=== PATIENT | female | born 2000 | race Caucasian/White ===

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

== ENCOUNTER 2020-03-21 10:39 | Emergency (ER) | payer OTHER ==
[~2020-03-21] VITALS: Ht 165.1 cm; Wt 56.7 kg
--- NOTE | 2020-03-21 10:49 | NUR ---
PT AMBULATED TO BATHROOM, STEADY GAIT.
[2020-03-21 10:50] VITALS: BP 122/75
--- NOTE | 2020-03-21 11:00 | NUR ---
20 Y/F PRESENTS TO ED FOR ON AND OFF CHEST PALPIATIONS ONSET WHILE DANCING YESTERDAY. "IT FEELS LIKE MY HEART IS DROPPING". PT REPORTS IT IS EXACCERBATED BY MOVEMENT. DENIES PAIN, BUT REPORTS SLIGHT SOB. PT DENIES N/V/D/ FEVER. PT DENIES ANY USE OF ENERGY DRINKS OR WORKOUT SUPPLEMENTS. PT DENIES COUGH, LUNGS CLEAR, A&O X 4. PT ALSO REPORTS R THIGH ABRASION X 2 DAYS WHILE HIKING, SKIN INTACT, C ERYTHEMA, NO PUS, FEVER OR SIGNS OF INFECTION PMH- ASTHMA RX- CONTROL PATCH
[2020-03-21 11:38] VITALS: BP 122/75
--- NOTE | 2020-03-21 11:38 | NUR ---
Patient discharged with v/s stable. Written and verbal after care instructions given and explained. Patient alert, oriented and verbalized understanding of instructions. Ambulatory with steady gait. All questions addressed prior to discharge. ID band removed. Patient advised to follow up with PMD. Rx of VISTARIL given. Patient educated on indication of medication including possible reaction and side effects. Opportunity to ask questions provided and answered.
== END 2020-03-21 11:38 | disposition home or self-care (01) ==
LOC: MED 10:39
DX: F41.9 Anxiety disorder, unspecified (principal); J45.909 Unspecified asthma, uncomplicated; Z88.6 Allergy status to analgesic agent; Z88.8 Allergy status to other drugs, medicaments and biological substances; Z79.899 Other long term (current) drug therapy
CPT/HCPCS: 81002; 81025; 93005; 99283

== ENCOUNTER 2020-04-23 01:04 | Emergency (ER) | payer OTHER ==
[~2020-04-23] VITALS: Ht 165.1 cm; Wt 55.8 kg
[2020-04-23 01:10] VITALS: BP 137/82
--- NOTE | 2020-04-23 01:14 | NUR ---
AMBULATED TO BED O6 WITH STEADY GAIT.
[2020-04-23] MEDS: PHENAZOPYRIDINE 100 MG TAB PO ONE (02:30)
[2020-04-23] MEDS: cephALEXin 500 MG CAP PO ONE (02:30)
[2020-04-23] MEDS ORDERED: DOXYCYCLINE 100 MG CAP PO SCH (03:20)
--- NOTE | 2020-04-23 03:28 | NUR ---
Dr Shelton preformed pelvic exam with this nurse. Wet mount sent to lab.
[2020-04-23] MEDS ORDERED: cefTRIAXone 250 MG VIAL ONE (03:32)
[2020-04-23] MEDS ORDERED: LIDOCAINE MPF 1% 5 ML ONE (03:32)
[2020-04-23] MEDS: cefTRIAXone 250 MG in LIDOCAINE MPF 1% 0.9 ML IM ONE (03:38)
[2020-04-23] MEDS: FLUCONAZOLE 100 MG TAB PO ONE (03:47)
[2020-04-23 04:32] VITALS: BP 128/62
[2020-04-25 06:18] LABS: CHLAMYDIA TRACHOMATIS AMP DNA Negative (Negative)
== END 2020-04-23 04:32 | disposition home or self-care (01) ==
LOC: MED 01:04
DX: N39.0 Urinary tract infection, site not specified (principal); J45.909 Unspecified asthma, uncomplicated; Z88.6 Allergy status to analgesic agent; Z88.8 Allergy status to other drugs, medicaments and biological substances; Z79.899 Other long term (current) drug therapy
CPT/HCPCS: 36415; 81002; 81025; 87210; 87491; 96372; 99284; J0696; J2001; 99283

== ENCOUNTER 2020-04-28 13:14 | Emergency (ER) | payer OTHER ==
[~2020-04-28] VITALS: Ht 165.1 cm; Wt 55.8 kg
[2020-04-28 13:23] VITALS: BP 113/62
[2020-04-28] MEDS ORDERED: ACETAMINOPHEN EXTRA STRENGTH 500 MG TAB PO ONE (14:00)
[2020-04-28] MEDS ORDERED: ONDANSETRON 4 MG ODT PO ONE (14:00)
[2020-04-28 14:22] VITALS: BP 113/62
== END 2020-04-28 14:22 | disposition home or self-care (01) ==
LOC: MED 13:14
DX: N39.0 Urinary tract infection, site not specified (principal); R11.0 Nausea; J45.909 Unspecified asthma, uncomplicated; Z79.899 Other long term (current) drug therapy; Z88.6 Allergy status to analgesic agent; Z88.5 Allergy status to narcotic agent; Z88.8 Allergy status to other drugs, medicaments and biological substances
CPT/HCPCS: 81002; 81025; 99283; Q0162

== ENCOUNTER 2020-09-13 23:24 | Emergency (ER) | payer OTHER ==
[~2020-09-13] VITALS: Ht 165.1 cm; Wt 58.5 kg
[2020-09-13 23:25] VITALS: BP 122/74
--- NOTE | 2020-09-13 23:28 | NUR ---
TO LOBBY A/W BED AMBULATORY
--- NOTE | 2020-09-14 00:35 | NUR ---
PATIENT CALLED FOR BED , NO RESPONSE PATIENT LEFT WITHOUT BEING SEEN BY DR. CARLISLE. NO FURTHER CARE PROVIDED FOR PATIENT.
--- NOTE | 2020-09-14 00:45 | NUR ---
CALLED FOR THE SECOND TIME , NO RESPONSE
--- NOTE | 2020-09-14 00:50 | NUR ---
CALLED FOR THE THIRD TIME, NO RESPONSE
== END 2020-09-14 00:35 | disposition left against medical advice (07) ==
LOC: MED 23:24
DX: M54.5 Low back pain (principal); Z53.21 Procedure and treatment not carried out due to patient leaving prior to being seen by health care provider

== ENCOUNTER 2020-12-17 01:23 | Emergency (ER) | payer OTHER ==
[~2020-12-17] VITALS: Ht 165.1 cm; Wt 59.0 kg
[2020-12-17 01:27] VITALS: BP 108/57
[2020-12-17 03:15] VITALS: BP 108/57
== END 2020-12-17 03:12 | disposition home or self-care (01) ==
LOC: MED 01:23
DX: R07.9 Chest pain, unspecified (principal); M79.602 Pain in left arm; J45.909 Unspecified asthma, uncomplicated; Z23 Encounter for immunization; Z79.899 Other long term (current) drug therapy; Z88.8 Allergy status to other drugs, medicaments and biological substances; Z88.6 Allergy status to analgesic agent; Z88.5 Allergy status to narcotic agent
CPT/HCPCS: 71045; 81025; 93005; 99283

== ENCOUNTER 2021-10-06 13:44 | Emergency (ER) | payer OTHER ==
[~2021-10-06] VITALS: Ht 165.1 cm; Wt 59.0 kg
[~2021-10-06 13:44] MED LIST changes: +ACET-10509 PO; -ACET-6134 PO
[2021-10-06 14:20] VITALS: BP 125/50
[2021-10-06] MEDS ORDERED: PRED20TA5 PO (14:59)
[2021-10-06] MEDS ORDERED: PROM118S5 PO (14:59)
--- NOTE | 2021-10-06 15:22 | NUR ---
COVID PCR & COVID RAPID SWABS DONE.
--- NOTE | 2021-10-06 15:30 | NUR ---
NO NURSING CARE RENDERED-Patient discharged with v/s stable. Written and verbal after care instructions given and explained. Patient alert, oriented and verbalized understanding of instructions. Ambulatory with steady gait. All questions addressed prior to discharge. ID band removed. Patient advised to follow up with PMD. Rx of DELTASONE, PROMETHAZINE-DM given. Patient educated on indication of medication including possible reaction and side effects. Opportunity to ask questions provided and answered.
== END 2021-10-06 15:30 | disposition home or self-care (01) ==
LOC: MED 13:44
DX: R06.02 Shortness of breath (principal); Z20.822 Contact with and (suspected) exposure to COVID-19; J45.909 Unspecified asthma, uncomplicated; Z79.899 Other long term (current) drug therapy; Z88.5 Allergy status to narcotic agent; Z88.8 Allergy status to other drugs, medicaments and biological substances; Z88.6 Allergy status to analgesic agent
CPT/HCPCS: 87426; 99283; U0003

== ENCOUNTER 2022-01-21 19:26 | Emergency (ER) | payer OTHER ==
[~2022-01-21] VITALS: Ht 165.1 cm; Wt 59.0 kg
[~2022-01-21 19:26] MED LIST changes: +PRED20TA5 PO; +PROM118S5 PO
[2022-01-21 19:32] VITALS: BP 125/84
--- NOTE | 2022-01-21 19:42 | NUR ---
PT TAKEN TO ER BED 05
--- NOTE | 2022-01-21 19:50 | NUR ---
IV ESTABLISHED 20G LEFT AC
[2022-01-21] MEDS ORDERED: KETOROLAC 30 MG/ML VIAL IVP ONE (19:55)
[2022-01-21] MEDS ORDERED: NACL 0.9% 1,000 ML IV SCH (19:55)
--- NOTE | 2022-01-21 20:08 | NUR ---
PATIENT TAKEN TO CT VIA W/C. CONSENT SIGNED AND FILED IN CHART. STATED NO NEED TO WAIT FOR LABS RIGHT NOW
[2022-01-21 20:12] LABS: BASOPHILS % (AUTO) 0.7 % (0.0-2.0); EOSINOPHILS # (AUTO) 0.1 K/uL (0-0.4); EOSINOPHILS % (AUTO) 1.8 % (0.0-4.0); HEMATOCRIT 34.6 % (36-48); HEMOGLOBIN 11.6 g/dL (12.0-16.0); LYMPHOCYTES # (AUTO) 3.4 K/uL (2.5-16.5); LYMPHOCYTES % (AUTO) 49.1 % (20.5-51.1); MEAN CORPUSCULAR HEMOGLOBIN 29 pg (27-31); MEAN CORPUSCULAR HGB CONC 33 g/dL (33-37); MEAN CORPUSCULAR VOLUME 85.3 fL (80-94); MONOCYTES # (AUTO) 0.5 K/uL (0.8-1.0); MONOCYTES % (AUTO) 7.7 % (1.7-9.3); NEUTROPHILS # (AUTO) 2.8 K/uL (1.8-7.7); NEUTROPHILS % (AUTO) 40.7 % (42.2-75.2); PLATELET COUNT (AUTO) 313 K/uL (140-450); RED BLOOD CELL COUNT(AUTO) 4.06 MIL/uL (4.20-5.40); RED CELL DISTRIBUTION WIDTH 13.6 % (11.6-13.7); WHITE BLOOD COUNT (AUTO) 6.9 K/uL (4.8-10.8)
--- NOTE | 2022-01-21 20:15 | NUR ---
PATIENT RETURNED FROM CT VIA CT
[2022-01-21 20:26] LABS: APPEARANCE,URINE CLEAR (CLEAR); BILIRUBIN,URINE NEGATIVE (NEGATIVE); BLOOD, URINE NEGATIVE (NEGATIVE); LEUKOCYTE ESTERASE ,URINE NEGATIVE (NEGATIVE); NITRITE, URINE NEGATIVE (NEGATIVE); UGLUCOSE NEGATIVE (NEGATIVE)
[2022-01-21 20:27] LABS: COLOR,URINE STRAW (YELLOW)
[2022-01-21 20:29] LABS: ANION GAP 12.3 (8-16); CARBON DIOXIDE 27.4 mmol/L (21-32); CREATININE 0.6 mg/dL (0.6-1.3); POTASSIUM 3.7 mmol/L (3.5-5.1); TOTAL BILIRUBIN 0.3 mg/dL (0.0-1.0)
--- NOTE | 2022-01-21 20:34 | NUR ---
21/F BIB SELF, AMBULATORY, AAO X4. C/O RLQ ABD PAIN. PAIN IS 9/10 AND RAD TO THE RIGHT PELVIC AND LEG, EXACERBATED WHEN WALKING. PATIENT HAS N/V/D X1 EPISODE. DENIES FEVER, SOB, CP AT THIS TIME. PATIETN STATED THAT SHE SAW HER OB YESTERDAY, OB STATED THAT THE PROBLEM OF THE PAIN WAS NOT FROM HER OVARIAN CYST. PMHX: ASTHMA, OVARIAN CYST Sx: Tonsillectomy
--- NOTE | 2022-01-21 21:08 | NUR ---
MD FERNANDEZ AT BEDSIDE
--- NOTE | 2022-01-21 21:10 | NUR ---
PATIENT STATED THAT PAIN HAD DECREASED 2/10 AT THIS TIME. BED LOW AND LOCKED. ALL NEEDS MET
[2022-01-21] MEDS ORDERED: IBUP-2213 PO (21:46)
[2022-01-21] MEDS ORDERED: ACET-8386 PO (21:46)
[2022-01-21 22:00] VITALS: BP 121/72
--- NOTE | 2022-01-21 22:00 | NUR ---
IV removed, catheter intact and site benign. Applied folded 4x4 gauze and tape to stop bleeding.
--- NOTE | 2022-01-21 22:00 | NUR ---
Patient discharged with v/s stable. Written and verbal after care instructions given on Abd pain/ovarian cyst and explained. Patient alert, oriented and verbalized understanding of instructions. Ambulatory with steady gait. All questions addressed prior to discharge. ID band removed. Patient advised to follow up with PMD. Rx of Ibuprofen, and Hydrocodone/Acetaminophen given.
--- NOTE | 2022-01-21 22:08 | NUR ---
The patient's care was reviewed and supervised by Georgina Weinberg RN.
== END 2022-01-21 22:00 | disposition home or self-care (01) ==
LOC: MED 19:26
DX: N83.201 Unspecified ovarian cyst, right side (principal); J45.909 Unspecified asthma, uncomplicated; Z88.6 Allergy status to analgesic agent; Z88.5 Allergy status to narcotic agent; Z88.8 Allergy status to other drugs, medicaments and biological substances; Z79.899 Other long term (current) drug therapy; Z90.49 Acquired absence of other specified parts of digestive tract
CPT/HCPCS: 36415; 74177; 80053; 81003; 81025; 83690; 85025; 96361; 96374; 99285; J1885; J7030; Q9967

== ENCOUNTER 2022-07-22 14:43 | Emergency (ER) | payer OTHER ==
[~2022-07-22] VITALS: Ht 157.5 cm; Wt 56.7 kg
[~2022-07-22 14:43] MED LIST changes: +ACET-8386 PO; +IBUP-2213 PO
[2022-07-22 14:46] VITALS: BP 126/74
--- NOTE | 2022-07-22 15:01 | NUR ---
PT AMB TO BED
--- NOTE | 2022-07-22 15:05 | NUR ---
22YO FEMALE PT C/O DIZZINESS AND NAUSEA X3DAYS. STATES GOING TO PCP , DC WITH ANTIBIOTICS DUE TO SINUSITIS. STATES BEING COMPLIANT W/O RELIEF. NOTES "PRESSURED "PAIN BEHIND EYES AND IN NOSE W/ RELIEF AFTER TAKING ADVIL. DENIES V/D, CHEST PAIN , SOB , FEVER OR CHILLS. PT AAOX4, NO VISIBLE DISTRESS. RESPIRATIONS EVEN AND UNLABORED. AMBULATORY W/ STEADY GAIT HX:ASTHMA ALLERGIES : ACETAMINOPHEN, ASPIRIN, DIAZEPAM AND TRAMADOL
--- NOTE | 2022-07-22 15:35 | NUR ---
FROILAN CONNELL AT BEDSIDE FOR EVALUATION
[2022-07-22] MEDS ORDERED: [UNRECOGNIZED DRUG - CODE] NS (15:41)
[2022-07-22] MEDS ORDERED: [UNRECOGNIZED DRUG - CODE] PO (15:41)
--- NOTE | 2022-07-22 15:52 | NUR ---
Patient discharged with v/s stable. Written and verbal after care instructions FOR SINUSITIS AND VERTIGO given and explained. Patient alert, oriented and verbalized understanding of instructions. Ambulatory with steady gait. All questions addressed prior to discharge. ID band removed. Patient advised to follow up with PMD. Rx of OXYMETAZOLINE HCL AND PHENYLEPHRINE HCL given. Opportunity to ask questions provided and answered.
--- NOTE | 2022-07-22 16:02 | NUR ---
The patient's care was reviewed and supervised by [facility], RN.
== END 2022-07-22 15:52 | disposition home or self-care (01) ==
LOC: MED 14:43
DX: R09.82 Postnasal drip (principal); R42 Dizziness and giddiness; J32.9 Chronic sinusitis, unspecified; J45.909 Unspecified asthma, uncomplicated; Z88.5 Allergy status to narcotic agent; Z79.82 Long term (current) use of aspirin; Z88.8 Allergy status to other drugs, medicaments and biological substances
CPT/HCPCS: 99282

== ENCOUNTER 2022-12-23 07:28 | Emergency (ER) | payer OTHER ==
[~2022-12-23] VITALS: Ht 165.1 cm; Wt 71.7 kg
[~2022-12-23 07:28] MED LIST changes: -ACET-8386 PO; +ACET-8905 PO; +[UNRECOGNIZED DRUG - CODE] NS; +[UNRECOGNIZED DRUG - CODE] PO
[2022-12-23 07:36] VITALS: BP 116/69
--- NOTE | 2022-12-23 07:41 | NUR ---
PT AMBULATED TO ER BED 4
[2022-12-23] MEDS ORDERED: DEXAMETHASONE 4 MG/ML VIAL PO ONE (08:00)
[2022-12-23] MEDS ORDERED: FLONAS NS (08:04)
[2022-12-23] MEDS ORDERED: BENZ200C4 PO (08:04)
--- NOTE | 2022-12-23 08:13 | NUR ---
Flu and covid swabs handed to lab.
[2022-12-23 09:07] VITALS: BP 116/69
== END 2022-12-23 09:07 | disposition home or self-care (01) ==
LOC: MED 07:28
DX: B34.9 Viral infection, unspecified (principal); J06.9 Acute upper respiratory infection, unspecified; Z20.822 Contact with and (suspected) exposure to COVID-19; J45.909 Unspecified asthma, uncomplicated; Z79.899 Other long term (current) drug therapy; Z79.1 Long term (current) use of non-steroidal anti-inflammatories (NSAID); Z79.891 Long term (current) use of opiate analgesic; Z88.5 Allergy status to narcotic agent
CPT/HCPCS: 71045; 81025; 87426; 87804; 93005; 99285; J1100; Q0092

== ENCOUNTER 2023-03-23 19:17 | Emergency (ER) | payer OTHER ==
[~2023-03-23] VITALS: Ht 165.1 cm; Wt 66.7 kg
[~2023-03-23 19:17] MED LIST changes: +BENZ200C4 PO; +FLONAS NS
[2023-03-23 19:20] VITALS: BP 123/80; PULSE 68; RESP 17; TEMP 97.7; O2SAT 100
--- NOTE | 2023-03-23 19:23 | NUR ---
to lobby a/w bed ambulatory
--- NOTE | 2023-03-23 19:40 | NUR ---
seen and examined by HOMERO
[2023-03-23] MEDS ORDERED: IMI50 PO (19:52)
[2023-03-23] MEDS ORDERED: ACET-10509 PO (19:52)
[2023-03-23] MEDS ORDERED: IBUP-2213 PO (19:52)
[2023-03-23] MEDS ORDERED: KETOROLAC 30 MG/ML VIAL IM ONE (19:55)
[2023-03-23 20:39] VITALS: BP 123/80; PULSE 68; RESP 17; TEMP 97.7; O2SAT 100
--- NOTE | 2023-03-23 20:39 | NUR ---
Patient discharged with v/s stable. Written and verbal after care instructions given and explained. Patient alert, oriented and verbalized understanding of instructions. Ambulatory with steady gait. All questions addressed prior to discharge. ID band removed. Patient advised to follow up with PMD. Rx of TYLENOL, IBUPROFEN , IMITREX given. Patient educated on indication of medication including possible reaction and side effects. Opportunity to ask questions provided and answered.
--- NOTE | 2023-03-23 20:39 | NUR ---
PT'S PAIN CONTINUES AT 8/10, STATES SHE IS OK TO BE DISCHARGED. STATES SHE CAN TAKE HER PRESCIPTION MEDICATION IF NEEDED.
== END 2023-03-23 20:39 | disposition home or self-care (01) ==
LOC: MED 19:17
DX: G43.909 Migraine, unspecified, not intractable, without status migrainosus (principal); J45.909 Unspecified asthma, uncomplicated; Z79.899 Other long term (current) drug therapy
CPT/HCPCS: 81025; 96372; 99283; J1885

== ENCOUNTER 2023-06-05 19:13 | Emergency (ER) | payer OTHER ==
[~2023-06-05] VITALS: Ht 165.1 cm; Wt 73.0 kg
[~2023-06-05 19:13] MED LIST changes: +IMI50 PO
[2023-06-05 19:28] VITALS: BP 122/76; PULSE 66; RESP 14; TEMP 97.7; O2SAT 99
[2023-06-05] MEDS ORDERED: IBUPROFEN 400 MG TAB PO ONE (19:45)
[2023-06-05] MEDS ORDERED: ACETAMINOPHEN 325 MG TAB PO ONE (19:45)
[2023-06-05 20:30] VITALS: BP 122/76; PULSE 66; RESP 14; TEMP 97.7; O2SAT 99
== END 2023-06-05 20:35 | disposition home or self-care (01) ==
LOC: MED 19:13
DX: S09.90XA Unspecified injury of head, initial encounter (principal); J45.909 Unspecified asthma, uncomplicated; W22.8XXA Striking against or struck by other objects, initial encounter; Y93.89 Activity, other specified; Y92.89 Other specified places as the place of occurrence of the external cause; Y99.8 Other external cause status
CPT/HCPCS: 81002; 81025; 99283

== ENCOUNTER 2023-07-14 15:34 | Emergency (ER) | payer OTHER ==
[~2023-07-14] VITALS: Ht 165.1 cm; Wt 71.2 kg
[2023-07-14 15:35] VITALS: BP 126/69; PULSE 73; RESP 18; TEMP 98.3; O2SAT 98
[2023-07-14 16:26] LABS: APPEARANCE,URINE CLEAR (CLEAR); BILIRUBIN,URINE NEGATIVE (NEGATIVE); BLOOD, URINE NEGATIVE (NEGATIVE); COLOR,URINE YELLOW (YELLOW); LEUKOCYTE ESTERASE ,URINE NEGATIVE (NEGATIVE); NITRITE, URINE NEGATIVE (NEGATIVE); PROTEIN,URINE NEGATIVE (NEGATIVE); UGLUCOSE NEGATIVE (NEGATIVE); UROBILINOGEN,URINE 0.2 EU/dL (0.2 - 1)
[2023-07-14] MEDS ORDERED: KETOROLAC 30 MG/ML VIAL IVP ONE (16:30)
[2023-07-14] MEDS ORDERED: KETOROLAC 15 MG/ML VIAL ONE (16:51)
[2023-07-14 16:53] LABS: BASOPHILS # (AUTO) 0.1 K/uL (0.00-0.22); BASOPHILS % (AUTO) 1.5 % (0.0-2.0); EOSINOPHILS # (AUTO) 0.1 K/uL (0-0.4); EOSINOPHILS % (AUTO) 1.1 % (0.0-4.0); MEAN CORPUSCULAR HEMOGLOBIN 28 pg (27-31); MEAN CORPUSCULAR HGB CONC 33 g/dL (33-37); MEAN CORPUSCULAR VOLUME 83.6 fL (80-94); MONOCYTES # (AUTO) 0.6 K/uL (0.8-1.0); MONOCYTES % (AUTO) 8.1 % (1.7-9.3); NEUTROPHILS # (AUTO) 4.4 K/uL (1.8-7.7); NEUTROPHILS % (AUTO) 61.3 % (42.2-75.2); PLATELET COUNT (AUTO) 360 K/uL (140-450); RED BLOOD CELL COUNT(AUTO) 4.67 MIL/uL (4.20-5.40); RED CELL DISTRIBUTION WIDTH 14.6 % (11.6-13.7); WHITE BLOOD COUNT (AUTO) 7.2 K/uL (4.8-10.8)
[2023-07-14 17:05] LABS: ALBUMIN 4.3 g/dL (3.4-5.0); ANION GAP 13.2 (8-16); CALCIUM 8.7 mg/dL (8.5-10.1); CARBON DIOXIDE 27.7 mmol/L (21-32); CREATININE 0.7 mg/dL (0.6-1.3); POTASSIUM 3.9 mmol/L (3.5-5.1); TOTAL BILIRUBIN 0.5 mg/dL (0.0-1.0); TOTAL PROTEIN, SERUM 7.7 g/dL (6.4-8.2)
[2023-07-14] MEDS ORDERED: IBUP-2213 PO (18:23)
[2023-07-14] MEDS ORDERED: ACET-8905 PO (18:23)
[2023-07-14 19:08] VITALS: BP 126/69; PULSE 73; RESP 18; TEMP 98.3; O2SAT 98
== END 2023-07-14 19:08 | disposition home or self-care (01) ==
LOC: MED 15:34
DX: R10.31 Right lower quadrant pain (principal); R19.7 Diarrhea, unspecified; J45.909 Unspecified asthma, uncomplicated; Z88.8 Allergy status to other drugs, medicaments and biological substances; Z79.899 Other long term (current) drug therapy
CPT/HCPCS: 36415; 74176; 80053; 81003; 81025; 83690; 85025; 96374; 99285; J1885

== ENCOUNTER 2024-02-26 00:42 | Emergency (ER) | payer OTHER | END 2024-02-26 01:30 | disposition left against medical advice (07) | LOC: MED 00:42 | DX: R10.9 Unspecified abdominal pain (principal); R07.9 Chest pain, unspecified; Z53.21 Procedure and treatment not carried out due to patient leaving prior to being seen by health care provider ==

== ENCOUNTER 2024-03-01 10:16 | Emergency (ER) | payer OTHER ==
[~2024-03-01] VITALS: Ht 167.6 cm; Wt 79.4 kg
[2024-03-01 10:25] VITALS: BP 115/75; PULSE 89; RESP 18; TEMP 97.4; O2SAT 99
[2024-03-01] MEDS ORDERED: KETOROLAC 30 MG/ML VIAL ONE (10:47)
[2024-03-01] MEDS ORDERED: ONDANSETRON 4 MG/2 ML VIAL ONE (10:47)
[2024-03-01] MEDS ORDERED: FAMOTIDINE 20 MG/2 ML VIAL ONE (10:48)
[2024-03-01] MEDS: ONDANSETRON 4 MG/2 ML VIAL IVP ONE (10:53)
[2024-03-01] MEDS: KETOROLAC 30 MG/ML VIAL IVP ONE (10:54)
[2024-03-01 10:56] LABS: BASOPHILS % (AUTO) 0.4 % (0.0-2.0); EOSINOPHILS # (AUTO) 0.5 K/uL (0-0.4); EOSINOPHILS % (AUTO) 8.1 % (0.0-4.0); HEMATOCRIT 38.2 % (36-48); LYMPHOCYTES # (AUTO) 1.5 K/uL (2.5-16.5); LYMPHOCYTES % (AUTO) 23.8 % (20.5-51.1); MEAN CORPUSCULAR HEMOGLOBIN 28 pg (27-31); MEAN CORPUSCULAR HGB CONC 34 g/dL (33-37); MEAN CORPUSCULAR VOLUME 83.3 fL (80-94); MONOCYTES # (AUTO) 0.5 K/uL (0.8-1.0); NEUTROPHILS # (AUTO) 3.8 K/uL (1.8-7.7); NEUTROPHILS % (AUTO) 59.7 % (42.2-75.2); PLATELET COUNT (AUTO) 363 K/uL (140-450); RED BLOOD CELL COUNT(AUTO) 4.59 MIL/uL (4.20-5.40); RED CELL DISTRIBUTION WIDTH 15.7 % (11.6-13.7); WHITE BLOOD COUNT (AUTO) 6.4 K/uL (4.8-10.8)
[2024-03-01] MEDS: FAMOTIDINE 20 MG/2 ML VIAL IVP ONE (10:56)
[2024-03-01 11:01] LABS: APPEARANCE,URINE CLEAR (CLEAR); BILIRUBIN,URINE NEGATIVE (NEGATIVE); BLOOD, URINE NEGATIVE (NEGATIVE); COLOR,URINE YELLOW (YELLOW); LEUKOCYTE ESTERASE ,URINE NEGATIVE (NEGATIVE); NITRITE, URINE NEGATIVE (NEGATIVE); PROTEIN,URINE NEGATIVE (NEGATIVE); UGLUCOSE NEGATIVE (NEGATIVE); UROBILINOGEN,URINE 0.2 EU/dL (0.2 - 1)
[2024-03-01] MEDS: NACL 0.9% 1,000 ML IV SCH (11:04)
[2024-03-01 11:07] LABS: ANION GAP 10.6 (8-16); CALCIUM 9.2 mg/dL (8.5-10.1); CARBON DIOXIDE 29.4 mmol/L (21-32); CREATININE 0.8 mg/dL (0.6-1.3)
[2024-03-01 11:18] LABS: BILIRUBIN,DIRECT 0.1 mg/dL (0.0-0.3); TOTAL BILIRUBIN 0.5 mg/dL (0.0-1.0); TOTAL PROTEIN, SERUM 7.3 g/dL (6.4-8.2)
[2024-03-01] MEDS ORDERED: ALUMINUM HYD/MAG/SIMETHICONE 30 ML UDC ONE (11:51)
[2024-03-01] MEDS: ALUMINUM HYD/MAG/SIMETHICONE 30 ML UDC PO ONE (11:53)
[2024-03-01] MEDS ORDERED: FAMO-92 PO (12:10)
[2024-03-01] MEDS ORDERED: ONDA-188 PO (12:10)
[2024-03-01 12:17] VITALS: BP 121/72; PULSE 78; RESP 16; TEMP 98; O2SAT 98
== END 2024-03-01 12:17 | disposition home or self-care (01) ==
LOC: MED 10:16
DX: K29.70 Gastritis, unspecified, without bleeding (principal); J45.909 Unspecified asthma, uncomplicated; Z90.89 Acquired absence of other organs; Z79.1 Long term (current) use of non-steroidal anti-inflammatories (NSAID); Z79.899 Other long term (current) drug therapy; Z88.5 Allergy status to narcotic agent; Z88.8 Allergy status to other drugs, medicaments and biological substances
CPT/HCPCS: 36415; 74176; 80048; 80076; 81003; 81025; 83690; 85025; 96361; 96374; 96375; 99285; J1885; J2405; J3490; J7030

== ENCOUNTER 2024-06-13 10:27 | Emergency (ER) | payer OTHER ==
[~2024-06-13] VITALS: Ht 165.1 cm; Wt 82.3 kg
[~2024-06-13 10:27] MED LIST changes: -ACET-10509 PO; +ACET500T99 PO; +FAMO-92 PO; +ONDA-188 PO
[2024-06-13 10:47] VITALS: BP 118/65; PULSE 82; RESP 18; TEMP 98; O2SAT 100
[2024-06-13 11:06] VITALS: BP 118/65; PULSE 82; RESP 18; TEMP 98; O2SAT 100
[2024-06-13] MEDS: LORATADINE 10 MG TAB PO ONE (11:40)
[2024-06-13 11:48] LABS: APPEARANCE,URINE CLEAR (CLEAR); BILIRUBIN,URINE NEGATIVE (NEGATIVE); BLOOD, URINE NEGATIVE (NEGATIVE); COLOR,URINE YELLOW (YELLOW); LEUKOCYTE ESTERASE ,URINE NEGATIVE (NEGATIVE); NITRITE, URINE NEGATIVE (NEGATIVE); PROTEIN,URINE NEGATIVE (NEGATIVE); UGLUCOSE NEGATIVE (NEGATIVE); UROBILINOGEN,URINE 0.2 EU/dL (0.2 - 1)
[2024-06-13 11:51] LABS: BACTERIA,URINE 0-2 /HPF (None Seen); RBC,URINE 0-5 /HPF (0-5); WBC,URINE 0-5 /HPF (0-5)
[2024-06-13 11:52] LABS: MUCUS,URINE 1+ /LPF (None Seen); SQUAMOUS EPITHELIAL CELL,UR 0-3 (FEW) /LPF (0-3 (FEW))
[2024-06-13] MEDS ORDERED: PYR100 PO (12:32)
[2024-06-13] MEDS ORDERED: CETI10TA81 PO (12:32)
[2024-06-13] MEDS ORDERED: HYD2.5O TP (12:33)
== END 2024-06-13 12:38 | disposition home or self-care (01) ==
LOC: MED 10:27
DX: L50.9 Urticaria, unspecified (principal); R30.0 Dysuria; J45.909 Unspecified asthma, uncomplicated; Z79.899 Other long term (current) drug therapy; Z88.8 Allergy status to other drugs, medicaments and biological substances; Z88.5 Allergy status to narcotic agent
CPT/HCPCS: 81001; 81025; 99283

== ENCOUNTER 2024-06-25 02:15 | Emergency (ER) | payer OTHER ==
[~2024-06-25] VITALS: Ht 165.1 cm; Wt 79.8 kg
[~2024-06-25 02:15] MED LIST changes: +CETI10TA81 PO; +HYD2.5O TP; +PYR100 PO
[2024-06-25 02:26] VITALS: BP 111/69; PULSE 95; RESP 16; TEMP 97.5; O2SAT 100
[2024-06-25 04:43] VITALS: BP 111/69; PULSE 95; RESP 16; TEMP 97.5; O2SAT 100
== END 2024-06-25 04:43 | disposition left against medical advice (07) ==
LOC: MED 02:15
DX: R51.9 Headache, unspecified (principal); M54.2 Cervicalgia; M54.9 Dorsalgia, unspecified; Z53.21 Procedure and treatment not carried out due to patient leaving prior to being seen by health care provider

== ENCOUNTER 2024-07-06 03:44 | Emergency (ER) | payer OTHER ==
[~2024-07-06] VITALS: Ht 165.1 cm; Wt 79.8 kg
[2024-07-06 03:57] VITALS: BP 120/84; PULSE 67; RESP 18; TEMP 98.1; O2SAT 100
[2024-07-06] MEDS ORDERED: IBUPROFEN 800 MG TAB PO ONE (04:25)
[2024-07-06] MEDS: KETOROLAC 60 MG/2 ML VIAL IM ONE (04:40)
[2024-07-06] MEDS: ACETAMINOPHEN EXTRA STRENGTH 500 MG TAB PO ONE (04:45)
[2024-07-06] MEDS ORDERED: IBUP-1801 PO (05:10)
[2024-07-06] MEDS ORDERED: AMOX1TER12 PO (05:10)
[2024-07-06 05:22] VITALS: BP 118/82; PULSE 62; RESP 16; TEMP 98.1; O2SAT 100
== END 2024-07-06 05:22 | disposition home or self-care (01) ==
LOC: MED 03:44
DX: J32.9 Chronic sinusitis, unspecified (principal); R51.9 Headache, unspecified; J45.909 Unspecified asthma, uncomplicated; Z79.899 Other long term (current) drug therapy; Z88.8 Allergy status to other drugs, medicaments and biological substances; Z88.5 Allergy status to narcotic agent
CPT/HCPCS: 81025; 96372; 99283; J1885

== ENCOUNTER 2024-07-09 21:18 | Emergency (ER) | payer OTHER ==
[~2024-07-09] VITALS: Ht 165.1 cm; Wt 84.8 kg
[~2024-07-09 21:18] MED LIST changes: +AMOX1TER12 PO; +IBUP-1801 PO
[2024-07-09 21:21] VITALS: BP 140/65; PULSE 70; RESP 20; TEMP 97.4; O2SAT 99
[2024-07-09 21:51] VITALS: BP 140/65; PULSE 70; RESP 20; O2SAT 99
[2024-07-09] MEDS: KETOROLAC 60 MG/2 ML VIAL IM ONE (22:20)
[2024-07-09] MEDS ORDERED: NAPR-337 PO (22:50)
[2024-07-09] MEDS ORDERED: LEVO-481 PO (22:50)
== END 2024-07-09 22:54 | disposition home or self-care (01) ==
LOC: MED 21:18
DX: J01.10 Acute frontal sinusitis, unspecified (principal); Z79.899 Other long term (current) drug therapy; Z88.5 Allergy status to narcotic agent; Z88.6 Allergy status to analgesic agent; Z88.8 Allergy status to other drugs, medicaments and biological substances
CPT/HCPCS: 70486; 96372; 99285; J1885